=== PATIENT | female | born 1960 | race Caucasian/White ===

== ENCOUNTER 2016-08-04 05:56 | Inpatient (IN) | payer OTHER ==
--- NOTE | 2016-08-01 08:41 | PCM.ANEPRE ---
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
[~2016-08-04] VITALS: Ht 157.5 cm; Wt 57.0 kg
[2016-08-04] VITALS (14 sets, daily range): BP systolic 114–143; BP diastolic 40–91; PULSE 57–75; RESP 7–23; O2SAT 91–100
[~2016-08-04 05:56] MED LIST: ASPI-973 PO; CYCL10TA9 PO; GABA-500 PO; HYDR-3740 PO; LAMO200T2 PO; LEVO125T6 PO; Lactated Ringer's 1,000 ML IV ONE; NITR0.4T SL; PROZ20 PO
[2016-08-04] MEDS: Tranexamic Acid 100 mg/mL 10 mL Inj IV SCH ×2 (06:00→08:00)
[2016-08-04] MEDS ORDERED: Vancomycin Inj 1,000 MG in IV Premix 1 EACH IV ONE (06:00)
[2016-08-04] MEDS ORDERED: Bupivacaine Liposome 1.3% 20 mL Inj INFILTRATE ONE (06:00)
[2016-08-04] MEDS ORDERED: CeFAZolin Inj 2 GM in IV Premix 1 EACH IV ONE (06:00)
[2016-08-04] MEDS ORDERED: Lactated Ringer's 1,000 ML IV ONE ×2 (06:45→10:34)
[2016-08-04] MEDS ORDERED: 0.9% Sodium Chloride 200 ML ONE (07:00)
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
[2016-08-04] MEDS ORDERED: Bupivacaine-MPF 0.25%/EPI 30 mL Inj INJ ONE (07:38)
[2016-08-04] MEDS ORDERED: Bupivacaine-MPF 0.5% 30 mL Inj INFILTRATE ONE (07:38)
[2016-08-04] MEDS ORDERED: Gentamicin 40 mg/mL 2 mL Inj IRRIGATION ONE (07:38)
[2016-08-04] MEDS: Tranexamic Acid 100 mg/mL 10 mL Inj ONE ×2 (08:05→09:03)
[2016-08-04] MEDS ORDERED: Lactated Ringer's 500 ML IV PRN (08:44)
[2016-08-04] MEDS ORDERED: Lactated Ringer's 1,000 ML IV SCH (08:44)
[2016-08-04] MEDS ORDERED: Phenylephrine 10,000 mCg/mL Inj IVPUSH PRN (08:45)
[2016-08-04] MEDS ORDERED: fentaNYL-PF 50 mCg/mL 2 mL Inj IVPUSH PRN (08:45)
[2016-08-04] MEDS ORDERED: Atropine 0.4 mg/mL Inj IVPUSH PRN (08:45)
[2016-08-04] MEDS ORDERED: Ondansetron 2 mg/mL 2 mL Inj IVPUSH PRN (08:45)
[2016-08-04] MEDS ORDERED: EPHEDrine Sulfate 50 mg/mL Inj IVPUSH PRN (08:45)
[2016-08-04] MEDS ORDERED: MetoCLOpramide 5 mg/mL 2 mL Inj IVPUSH PRN (08:45)
[2016-08-04] MEDS ORDERED: Dexamethasone 4 mg/mL Inj IVPUSH PRN (08:45)
[2016-08-04] MEDS ORDERED: HYDROmorphone 1 mg/mL Inj IVPUSH PRN (08:45)
--- NOTE | 2016-08-04 09:37 | PCM.ANEP1 ---
Post Anesthesia Phase 1 PACU Phase 1 Assessment Vital Signs Vital Signs Date Time Temp Pulse Resp B/P Pulse Ox O2 Delivery O2 Flow Rate FiO2 08/04/16 07:02 35.6 75 14 114/81 95 Room Air pulse 66 sat 92 124/86 temp 36.8 awake, doing well Anesthetic Administered: Regional Block, SAB Level of Alertness: Awake, talking MARINELLI's with Equal Strength: No Pain: No Nausea or Vomiting: No Oxygen Delivery: Room Air Lungs: Clear to Auscultation Barron Rader MD Aug 04, 2016 09:37
--- NOTE | 2016-08-04 10:28 | OP ---
[address] [address] OPERATIVE REPORT PATIENT: RD LYONS : 1960 MR#: [id number] ADMIT: 08/04/2016 JOB ID: [id number] DATE OF SURGERY: 08/04/2016 PREOPERATIVE DIAGNOSIS(ES): Advanced medial compartment osteoarthritis. POSTOPERATIVE DIAGNOSIS(ES): Advanced medial compartment osteoarthritis. PROCEDURE: Total knee replacement, right knee. SURGEON: Carlos Eduardo Trujillo MD INSURANCE AGENCY MANAGER: Kayleigh Abdi PA-C. Machine Programmer required due to the major complexity of the operation. INDICATIONS: This is a woman who has had substantial disability associated with gnlg-vh-[id number] medial compartment. She is not interested in a unicompartmental knee replacement, and wishes to proceed with a total knee replacement. She does understand the significant magnitude of this procedure, the potential risks and complications, which include, but is not limited to, infection, thromboembolic, neurovascular events, as well as a potential for implant failure. She understands that a total knee does not create a knee that feels completely normal nor to expect 100% pain relief. DESCRIPTION OF PROCEDURE: The patient is prepped and draped in the usual sterile fashion. An anteromedial approach made and dissection carried down. Patella was subluxed laterally, cut transversely, sized to a 29 mm implant. A patellar protection plate utilized. Alignment apparatus was assembled. Sword placed in the distal femur and a 5 degree valgus distal femoral cut was made. The bone fragments were removed and the femur was sized to a 5 chamfer cutting block, fixed in appropriate position. Rotation, drill holes and chamfer cuts were made. The tibia was cut with the extramedullary tool sized to C tibial component. Appropriate rotation was set. Excellent patellar tracking was encountered and ideal flexion extension balance was achieved with full extension, and a passive drop of 130 degrees flexion with a 10 mm fully congruent polyethylene. The wounds were irrigated with a large quantity of sterile irrigant, and pressurized lavage was followed by pressurized cementation of the components. Excess cement removed during the curing process. Final construct assembled. All meniscal tissue and osteophytes were carefully removed. The tourniquet was let down. The deep Hemovac drain was left. The knee had been lavaged with dilute Betadine solution and injected with Exparel and Marcaine mix. Deep fascia closure over a drain with a #2 Quill deep, followed by 2-0 Vicryl, 3-0, and a 4-0 intracuticular stitch. The patient tolerated the procedure well. There were no complications. Taken to the recovery room in stable condition.
--- NOTE | 2016-08-04 10:43 | DRSVH ---
PROCEDURE: X-RAY RIGHT KNEE, ONE OR TWO VIEWS ([id number]) INDICATIONS: PROTHESIS ALIGHNMENT TECHNIQUE: 2 view(s) of the knee acquired. COMPARISON: None. FINDINGS: Bones: Patient is status post knee joint arthroplasty. Hardware components are in expected position s. Visualized bony structures are intact. Soft tissues: Overlying postoperative changes are noted. IMPRESSION: Expected appearance following right knee arthroplasty. Dictated by: Yamile Delvalle M.D. on 08/04/2016 at 10:41 Approved by: Yamile Delvalle M.D. on 08/04/2016 at 10:42
[2016-08-04] MEDS ORDERED: Phenylephrine/NS 100 mCg/mL 10 mL Syringe IVPUSH ONE (11:04)
[2016-08-04] MEDS ORDERED: fentaNYL-PF 50 mCg/mL 2 mL Inj ONE (11:04)
[2016-08-04] MEDS ORDERED: Propofol 10,000 mCg/mL 20 mL Inj ONE ×2 (11:04)
[2016-08-04] MEDS ORDERED: MetoCLOpramide 5 mg/mL 2 mL Inj IV PRN (11:15)
[2016-08-04] MEDS ORDERED: Magnesium Hydroxide 10 mL Oral Concentration PO PRN (11:15)
[2016-08-04] MEDS ORDERED: diphenhydrAMINE 25 mg Capsule PO PRN (11:15)
[2016-08-04] MEDS ORDERED: Alum-Mag Hydrox-Simeth 30 mL Suspension PO PRN (11:15)
[2016-08-04] MEDS ORDERED: Ondansetron 8 mg ODT Tablet PO PRN (11:15)
[2016-08-04] MEDS ORDERED: Ondansetron 2 mg/mL 2 mL Inj IV PRN (11:15)
[2016-08-04] MEDS ORDERED: Sodium Biphos-Phos 133 mL Enema RECTAL PRN (11:15)
--- NOTE | 2016-08-04 11:16 | PCM.ANEP2 ---
Post Anesthesia Evaluation ASA/CMS Post Anesthesia VS in Patient's Normal Range?: Yes Resp Stable; Airway Patent?: Yes CV Function & Hydration Stable: Yes Mental Status Recovered?: Yes Pain control Satisfactory?: Yes N/V Control Satisfactory?: Yes Barron Rader MD Aug 04, 2016 11:16
[2016-08-04] MEDS: oxyCODONE-Acetamin 5-325 mg Tablet PO PRN ×4 (11:38→20:34)
[2016-08-04] MEDS: Lactated Ringer's 1,000 ML IV SCH (11:39)
--- NOTE | 2016-08-04 12:08 | NUR ---
Pt arrival to 1028 post surgical Rt TKA Report rec'd from Anna Pt arrived from PACU at 1100. A/O x3, very talkative. Pt complaining of px 5/10 to right shoulder, requesting px meds. Kpad applied. Orientation video played for Pt. Pt numb still from nerve blocks, murrell cath in place d/t retention, draining clear yellow urine to gravity. Right knee vinicius wrap in place, CDI, hemovac drain clamped, SCD in place on non-surgical LE, cap refill <1 BLLE, Pt unable to wiggle toes, states minor sensation to left foot.
[2016-08-04] MEDS: hydrOXYzine Pamoate 25 mg Capsule PO PRN ×2 (15:34→20:33)
--- NOTE | 2016-08-04 15:34 | NUR ---
Evaluation completed. Please go to "Notes" then click on "Assessments and Notes" (bottom left corner of screen). Then select appropriate discipline tab on top of screen.
[2016-08-04] MEDS ORDERED: CeFAZolin 2 Gm/50 mL D5W Premix IV SCH (16:00)
[2016-08-04] MEDS: LORazepam 0.5 mg Tablet PO PRN ×2 (16:37→20:34)
[2016-08-04] MEDS ORDERED: Vancomycin 1 Gm/200 mL NS Premix IV ONE (19:00)
[2016-08-04] MEDS: lamoTRIgine 100 mg Tablet PO SCH (20:34)
[2016-08-04] MEDS: CeFAZolin Inj 2 GM in IV Premix 1 EACH IV SCH (22:43)
[2016-08-05 00:42] VITALS: BP 104/66; PULSE 66; RESP 20; O2SAT 98
[2016-08-05] MEDS: LORazepam 0.5 mg Tablet PO PRN ×2 (00:55→08:52)
[2016-08-05] MEDS: hydrOXYzine Pamoate 25 mg Capsule PO PRN ×3 (00:55→22:19)
[2016-08-05] MEDS: oxyCODONE-Acetamin 5-325 mg Tablet PO PRN ×3 (00:56→20:14)
[2016-08-05] MEDS: Lactated Ringer's 1,000 ML IV SCH ×2 (04:04→20:35)
[2016-08-05 05:15] VITALS: BP 94/58; PULSE 66; RESP 20; O2SAT 99
[2016-08-05] MEDS: CeFAZolin Inj 2 GM in IV Premix 1 EACH IV SCH (06:23)
--- NOTE | 2016-08-05 07:15 | NUR ---
Pain/Anxiety Pt increasingly restless and impulsive, abdomen distended and complaints of cramping pain. Pt uses bedpan and is emotional and crying r/t bowel movement being on skin and making the room smell bad. PO pain medication unsuccessful, maalox and zofran have better results at reducing discomfort. Pt has complaints of insomnia, ambien minimally effective and restoril given as follow up. 1 dose of IV meds for breakthrough pain control. SAo2 100 on 1L, maintained for REBECCA. IV patent and infusing LR at 60 ml/h. Care continues
[2016-08-05] MEDS ORDERED: LEVOTHYROXINE PO SCH ×2 (07:30)
[2016-08-05] MEDS: lamoTRIgine 100 mg Tablet PO SCH ×2 (08:07→20:15)
--- NOTE | 2016-08-05 10:28 | PCM.PNORTH ---
Subjective Date of Service: Aug 05, 2016 Visit Information: Reason for Visit Right Knee Arthritis Surgery/Surgery Date Post-Op Day # Date of Admission: Aug 04, 2016 at 11:03 Hospital Day # Subjective Found patient awake but somnolent. Attempted conversation and instructions and patient was unable to follow these. Patient deteriorated into rambling about unrelated issues with punctuated periods of somnolence. Attempted to discuss performance with physical therapy and typical recovery process while in-house and patient deteriorated into unrelated rambling. Postop General: No Complaints, No Shortness of Breath Pain Management: PO, IV Push Objective Exam Objective Orientation: Intermittently awake and poorly oriented. Unable to carry on a focused conversation. Dressing: Interoperative dressing is clean dry and intact. Wound: Wound is not observed today. Compartments: Calf and thigh are soft. Patient complains of pain posterior calf. Mobility/sensation: Toe wiggle and sensation are intact at right lower extremity distally. CASSI hose: None Alcocer: Present and working Drain: Hemovac drain present and working Gait: No gait yet as of this time with physical therapy. Vital Signs and I/O Vital Sign - Last Date Time Temp Pulse Resp B/P Pulse Ox O2 Delivery O2 Flow Rate FiO2 08/05/16 08:28 Supplement Oxygen 08/05/16 05:15 36.3 66 20 94/58 99 1.00 Intake and Output 08/04/16 08/04/16 08/05/16 Cumulative From/Thru 14:59 22:59 06:59 07/31/16 09:19 - 08/05/16 06:12 Intake Total 1450 ml 1360 ml 570 ml 3580 ml Output Total 950 ml 2000 ml 1540 ml 4490 ml Balance 500 ml -640 ml -970 ml -910 ml Intake Oral 1000 ml 570 ml 1570 ml IV Total 1450 ml 360 ml 2010 ml Output Urine Total 900 ml 2000 ml 1150 ml 4050 ml Drainage Total 390 ml 390 ml Estimated Blood Loss 50 ml 50 ml # Bowel Movements 1 1 General Appearance: Cooperative, No Acute Distress Extremities: No Compartment Syndrom Noted Postop Sensory Motor: Distal Motor Intact, Movement in Toes, Distal Sensation Intact SURGICAL WOUND : Drain Location Body Site: Knee Wound Drainage Type: Hemovac Activity: Activity per PT, Ambulate with PT (weightbearing as tolerated on the right lower extremity using frontwheel walker.) Catheters: Urethral 2 Way Alcocer Assessment & Plan Impression Patient is a 56-year-old female who is undergone elective right total knee arthroplasty on 08/04/[address] Carlos Eduardo Trujillo. Patient is a chronic narcotic user as well as using alcohol and cigarettes. Today on my first meeting with this patient she is somewhat incoherent regarding her conversation and is unable to focus. She is discussing and describing things that are not the topic of conversation. I cannot determine nor address the typical issues that would be managed at this first conversation due to patient's interaction. Patient does describe that she will discharge to a friend's home but is unclear about whether they will will be help there if needed. Problems: Plan Postop day # 1 from right total knee arthroplasty performed on 08/04/[address] Carlos Eduardo Trujillo. Weight bearing status: Weightbearing as tolerated on the right lower extremity. Mobility aid: From a walker Immobilization: None Precautions: Standard postoperative precautions including up with assist until cleared by physical therapy for independent mobility. Patient presents as somewhat incoherent with inability to focus on the topic at hand. Physical therapy: Continue formal physical therapy for mobility, gait and safety. Pain control: Continue by mouth pain medications with diligent effort to move away from IV pain medication. DVT prophylaxis: Continue ASA 81 mg EC by mouth twice a day 6 weeks postop for DVT prophylaxis. Wound care: Keep surgical wound clean dry and covered until seen in office in 2 weeks. Alcocer: Present and working. Alcocer should be discontinued today on postop day 1 after first PT session. Dressing: Interoperative dressing is clean dry and intact. Interoperative dressing will be changed to postoperative dressing tomorrow on postop day #2. Drain: Hemovac drain is present and working. Hemovac drain will be discontinued today on postop day #1 at 24 hours postop. CASSI hose: None. Bilateral thigh-high CASSI hose will be ordered today. Nursing communication: Nursing please discontinue Alcocer catheter today on postop day 1 after first PT session. Nursing please discontinue Hemovac wound drained today on postop day #1 at 24 hours postop. Nursing please move patient toward by mouth pain medications. Nursing please apply left lower extremity CASSI hose today on postop day 1 and applied right lower extremity CASSI hose tomorrow on postop day #2 after interoperative dressing has been changed. 2-week follow-up: Follow-up in 2 weeks at [facility] orthopedic clinic on prearranged appointment with mid-level provider for wound check and suture removal. 6-week follow-up: Follow-up in 6 weeks at [facility] orthopedic clinic on prearranged appointment with Dr. Carlos Eduardo Trujillo with right 2 view knee x- rays on arrival Plan: Due to patient's cognitive condition and her history of chronic narcotic use, cardiac ablation and current smoking and alcohol consumption I have requested hospitalist service to aid in the medical management of this patient. I have ordered a nicotine patch for the patient which she had previously refused. She currently admits to 4 cigarettes per day. She also currently admits to 2 beers per day. Based on my interaction I am not sure that these quantities are accurate. We will otherwise continue as usual with attempts at formal physical therapy with anticipated discharge to home on postop day 3. We may need to take advantage of home health services. Orthopedics thanks hospitalist service for their help in the medical management of this patient. Discharge instructions: Weightbearing as tolerated on the right lower extremity using front-wheeled walker. Begin outpatient physical therapy as soon as possible post discharge. Keep wound clean dry and covered until seen in office in 2 weeks. Patient may shower and wound should be kept dry and covered. Discharge plan: Anticipated discharge on postop day #3. VTE Prophylaxis: SCDs (left lower extremity SCD only.), CASSI Hose (bilateral thigh-high CASSI hose.), Other (ASA 81 mg EC by mouth twice a day 6 weeks postop for DVT prophylaxis.) Harrison Dueñas PA-C Aug 05, 2016 09:10
[2016-08-05 11:57] LABS: BASOPHILS % (AUTO) 0.2 % (0-3); EOSINOPHILS % (AUTO) 1.8 % (0-5); MONOCYTES % (AUTO) 5.9 % (4-12); Mean Corpuscular Hemoglobin 31.6 pg (27.0-35.0); Mean Corpuscular Volume 96.1 fL (81-100); NEUTROPHILS % (AUTO) 74.9 % (40-74); Platelet Count 147 bil/L (150-400)
--- NOTE | 2016-08-05 12:24 | DRSVH ---
PROCEDURE: US VEINOUS LEG DUPLEX UNILATERAL, RIGHT INDICATIONS: right posterior calf pain TECHNIQUE: Real-time imaging, as well as color and pulse Doppler interrogation, were performed of the lower extr emity deep veins from the inguinal ligament to the popliteal fossa. COMPARISON: None. FINDINGS: The deep veins are normally compressible, and free of intraluminal thrombus. Color and pu lse Doppler demonstrate normal phasic intraluminal flow. There is normal augmentation response to di stal compression maneuver. IMPRESSION: No deep venous thrombosis identified within the right lower extremity. Dictated by: Spike ASHBY Interpreted: Yana White MD on 08/05/2016 at 12:23 Transcribed by: YELITZA on 08/05/2016 at 12:24 Approved by: Yana White M.D. on 08/05/2016 at 15:21
[2016-08-05 12:47] LABS: Magnesium 2.1 mg/dL (1.6-2.6); Phosphorus 3.3 mg/dL (2.5-4.9)
[2016-08-05 12:48] VITALS: BP 99/64; PULSE 85; RESP 18; O2SAT 99
[2016-08-05 12:49] LABS: TROPONIN T < 0.010 ug/L (0.0-0.011)
[2016-08-05 13:47] LABS: APPEARANCE,URINE HAZY (CLEAR,HAZY); COLOR,URINE YELLOW (YELLOW); PH,URINE 5.5 (5.0-8.0)
[2016-08-05 13:48] LABS: OCCULT BLOOD,URINE LARGE (NEGATIVE); UROBILINOGEN,URINE NORMAL (NORMAL)
[2016-08-05 13:59] LABS: YEAST,URINE FEW (NONE SEEN)
--- NOTE | 2016-08-05 16:01 | NUR ---
Social Work-attempted assessment: Data:EMR Reviewed. Pt is a 56 y/o female who was admitted on 08/04/16 for right knee arthritis per H&P. Pt's insurance is [employer] and PCP is Marilyn Pruett MD. Pt resides at home where she remains independent with ADLs. SW attempted to see pt, but PT currently in the room. SW to follow up with assessment tomorrow.SW will continue to follow. Assessment:Pt who is independent at baseline. Plan:Pt to discharge home when medically stable via POV. SW to follow up with assessment tomorrow.SW will continue to follow. JANET Yee
--- NOTE | 2016-08-05 17:32 | PCM.CHPMED ---
Subjective Date of Service: Aug 05, 2016 Provider requesting consult: Carlos Eduardo Trujillo MD Primary Physician: Admitting Physician: Carlos Eduardo Trujillo MD Primary Care Physician: Marilyn Pruett MD Attending Physician: Carlos Eduardo Trujillo MD Chief Complaint: Chief Complaint: Medicine consulted for altered mental status/1 day History of Present Illness: Kerry is a 56-year-old lady with past medical history of hypertension,WPW status post ablation, mitral valve prolapse, hypothyroidism, anxiety disorder was admitted for elective right total knee replacement. She underwent successful right knee replacement on 08/04/16 with no complications. She was noted to be slightly confused today and medicine consulted. She had received oxycodone and Ativan this morning. Spoke with her mother at bedside, she states patient is slightly more sleepy today otherwise not much changed from baseline. Patient alert and oriented 3 At time of examination. Denies fever. Complains of pain at surgical site. Review of Systems: A comprehensive review of systems performed, pertinent positives and negatives included in history of present illness PMH Past Medical History Right knee arthritis Mitral valve prolapse WPW status post ablation Endometriosis status post ablation 2 Hypothyroidism Anxiety Surgical History Endometrial ablation wpw ablation Arthroscopy knee Laminectomy March 2012 Tonsillectomy neck surgery Home Medications Aspirin 81 mg by mouth daily Cyclobenzaprine 10 mg by mouth. Gabapentin 600 mg 3 tablets at bedtime Lamotrigine 200 mg twice daily Levothyroxine 125 g daily Prozac 20 mg by mouth daily Allergies: Coded Allergies: codeine phosphate (Verified Adverse Reaction, Severe, NAUSEA, 07/31/16) crab (Verified Adverse Reaction, Severe, STOMACH ACHE, 07/31/16) morphine (Verified Adverse Reaction, Severe, NAUSEA, ANXIETY, PALPITATIONS , 07/31/16) Family History Family History Adopted Social History Hx Alcohol Use: Yes (4 drinks/week)Hx Substance Use: NoHx Tobacco Use: Yes (1 /2 pack day) Exam Vital Signs Vital Sign - Last Date Time Temp Pulse Resp B/P Pulse Ox O2 Delivery O2 Flow Rate FiO2 08/05/16 14:19 Room Air 08/05/16 12:48 85 18 99/64 99 1.00 08/05/16 05:15 36.3 Intake and Output 08/04/16 08/04/16 08/05/16 Cumulative From/Thru 15:00 23:00 07:00 2/9/17 09:19 - 08/05/16 06:12 Intake Total 1450 ml 1360 ml 570 ml 3580 ml Output Total 950 ml 2000 ml 1540 ml 4490 ml Balance 500 ml -640 ml -970 ml -910 ml Intake Oral 1000 ml 570 ml 1570 ml IV Total 1450 ml 360 ml 2010 ml Output Urine Total 900 ml 2000 ml 1150 ml 4050 ml Drainage Total 390 ml 390 ml Estimated Blood Loss 50 ml 50 ml # Bowel Movements 1 1 General: Alert, Oriented X3, Cooperative, No Acute Distress Head: Normal Mouth: Mucous Membr Moist/[place] Neck: Supple Chest & Lungs: Clear to auscultation & percussion Cardiovascular: Regular Rate/Rhythm, Normal S1, Normal S2 Abdomen: Benign Genitourinary: Other (Alcocer in place) Musculoskeletal: Other (right knee surgical site cleanly dressed, drain in place ) Neurological: Grossly Neurologically Intact, Normal Speech, Strength Normal 4/ 4 ext, Sensation Intact Lab and Diagnostics Result Diagram: 08/05/16 1149 08/05/16 1149 Additional Diagnostics: PREOPERATIVE DIAGNOSIS(ES): Advanced medial compartment osteoarthritis. POSTOPERATIVE DIAGNOSIS(ES): Advanced medial compartment osteoarthritis. PROCEDURE: Total knee replacement, right knee. SURGEON: Carlos Eduardo Trujillo MD UNDER GROUND MINER: Kayleigh Abdi PA-C. Pipelines Superintendent required due to the major complexity of the operation. INDICATIONS: This is a woman who has had substantial disability associated with [id number] medial compartment. She is not interested in a unicompartmental knee replacement, and wishes to proceed with a total knee replacement. She does understand the significant magnitude of this procedure, the potential risks and complications, which include, but is not limited to, infection, thromboembolic, neurovascular events, as well as a potential for implant failure. She understands that a total knee does not create a knee that feels completely normal nor to expect 100% pain relief. DESCRIPTION OF PROCEDURE: The patient is prepped and draped in the usual sterile fashion. An anteromedial approach made and dissection carried down. Patella was subluxed laterally, cut transversely, sized to a 29 mm implant. A patellar protection plate utilized. Alignment apparatus was assembled. Sword placed in the distal femur and a 5 degree valgus distal femoral cut was made. The bone fragments were removed and the femur was sized to a 5 chamfer cutting block, fixed in appropriate position. Rotation, drill holes and chamfer cuts were made. The tibia was cut with the extramedullary tool sized to C tibial component. Appropriate rotation was set. Excellent patellar tracking was encountered and ideal flexion extension balance was achieved with full extension, and a passive drop of 130 degrees flexion with a 10 mm fully congruent polyethylene. The wounds were irrigated with a large quantity of sterile irrigant, and pressurized lavage was followed by pressurized cementation of the components. Excess cement removed during the curing process. Final construct assembled. All meniscal tissue and osteophytes were carefully removed. The tourniquet was let down. The deep Hemovac drain was left. The knee had been lavaged with dilute Betadine solution and injected with Exparel and Marcaine mix. Deep fascia closure over a drain with a #2 Quill deep, followed by 2-0 Vicryl, 3-0, and a 4-0 intracuticular stitch. The patient tolerated the procedure well. There were no complications. Taken to the recovery room in stable condition. Carlos Eduardo Trujillo MD 08/04/16 0916 <Electronically signed by Carlos Eduardo Trujillo MD> 08/05/16 0848 Report status: Signed Transcribed by: PRECYSE 08/04/16 1029 Assessment & Plan Assessment Kerry is a 56-year-old lady with past medical history of hypertension,WPW status post ablation, mitral valve prolapse, hypothyroidism, anxiety disorder was admitted for elective right total knee replacement # Altered mental state,acute,not poa -due to pain meds vs UTI vs others -Remove Alcocer -UA with pyuria, urine culture pending. will start ceftriaxone -TSH is elevated at 15, free T4 0.83, borderline low. will increase Synthroid to 150 mics daily -Will use pain meds with caution, lowered gabapentin dose - will consider imaging if no improvement # Status post right knee replacement on 08/04/16 -Pain control -Will defer DVT prophylaxis per orthopedics #Hypothyroidism -as above # History of WPW status post ablation, chronic, stable -No palpitation, regular rhythm on exam Thank you for the consult, will follow along with you Problems: VTE Prophylaxis: SCDs (left lower extremity SCD only.), CASSI Hose (bilateral thigh-high CASSI hose.), Other (ASA 81 mg EC by mouth twice a day 6 weeks postop for DVT prophylaxis.) VTE Mechanical Devices: Intermittant Pneumatic CD Jacob Ruelas MD Aug 05, 2016 17:32
[2016-08-05] MEDS ORDERED: 0.9% Sodium Chloride 250 ML ONE (18:12)
[2016-08-05] MEDS: cefTRIAXone Inj 1,000 MG in Dextrose 5% Minibag Plus 50 ML IV SCH (18:26)
--- NOTE | 2016-08-05 18:57 | NUR ---
Shift update: Upon arrival this a.m. Pt noted to be very sedated, unable to follow commands or answer questions appropriately. Very agitated when woken almost as if in a panic. Spoke with surgeon and DON Dueñas, reviewed EMAR and noted Pt had rec'd multiple px meds and anxiety meds during the night. Discussed with DON Dueñas and recommendations made to stay with oral px meds and small dose of anti anxiety meds. Pt is a smoker and has previously declined nicotine patch. Re-approached Pt and asked if she would like to reconsider. She accepted. PA ordered. PA spoke with hospitalist and medication changes have been made. Pt c/o px and after receiving px meds and vistaril for spasms,continued to cry in px, when changing subject and redirecting Pt clear, settled down, not anxious and able to focus on eating dinner. Mid shift Pt pulled out 1 of her IV's in FA when she was in a confused state, but visiting with her mom, unaware how she did it. Pt was up with PT this afternoon and was able to focus. Up to BSC x2 using FWW. Reminders given about hand/foot placement during transfers. 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
[2016-08-05 18:59] VITALS: BP 111/72; PULSE 81; RESP 20; O2SAT 98
[2016-08-05] MEDS: LEVOTHYROXINE PO SCH ×2 (21:23)
[2016-08-06] MEDS: oxyCODONE-Acetamin 5-325 mg Tablet PO PRN ×5 (02:24→21:45)
[2016-08-06] MEDS: hydrOXYzine Pamoate 25 mg Capsule PO PRN ×5 (02:24→21:45)
--- NOTE | 2016-08-06 02:49 | NUR ---
Pain/activity Pt reporting pain up to 9/10 at beginning of shift and was given 2 tab of Percocet. Breakthrough pain medication needed after 2 hrs and pt was given 2 tabs of Oxycodone and 1 tab of Vistaril. Orthos intact, BELL wrap dressing CDI to right knee. SCD and Thigh high peter hose placed on non surgical leg. Pt is alert/oriented x3 while awake. Alcocer was taken out at the end of day shift and pt was voiding without issues by 2100, up to BSC with OPA and FWW. Rosana alarm in place. Continue close monitoring.
[2016-08-06 05:48] VITALS: BP 107/66; PULSE 69; RESP 18; O2SAT 98
--- NOTE | 2016-08-06 09:23 | PCM.PNORTH ---
Subjective Date of Service: Aug 06, 2016 Visit Information: Reason for Visit Right Knee Arthritis Surgery/Surgery Date Post-Op Day # Date of Admission: Aug 04, 2016 at 11:03 Hospital Day # Subjective Phone patient awake and alert and sitting up in bed crying uncontrollably secondary to pain. In discussion with patient and nurse it became apparent that the patient's pain medication had been someway been delayed for approximately 6 hours which has then put patient behind the pain curve and she is uncomfortable. We have explained to the patient that she is premedicated and will feel better soon. Postop General: No Shortness of Breath, No Chest Pain Pain Management: PO Objective Exam Objective Orientation: Alert and follows commands. Dressing: Interoperative dressing is clean dry and intact. Interoperative dressing is changed postop dressing today consisting of ABD with fishnet and Silverlon. Wound: Surgical wound is in good condition. Compartments: Calf and thigh are soft and nontender. Mobility/sensation: Toprol and sensation are intact at right lower extremity distally. CASSI hose: In place at left lower extremity. I spoke with nursing regarding feeding the right lower extremity thigh-high CASSI hose today when she has improved pain control. Alcocer: Absent Drain: In place and working. Drain was removed today at the time of dressing change. Gait: Gait 25 feet yesterday on postoperative day #1, 08/05/2016. Vital Signs and I/O Vital Sign - Last Date Time Temp Pulse Resp B/P Pulse Ox O2 Delivery O2 Flow Rate FiO2 08/06/16 05:48 36.4 69 18 107/66 98 Nasal Cannula 08/05/16 12:48 1.00 Intake and Output 08/05/16 08/05/16 08/06/16 Cumulative From/Thru 15:00 23:00 07:00 07/31/16 09:19 - 08/06/16 06:31 Intake Total 892 ml 1170 ml 768 ml 6410 ml Output Total 990 ml 945 ml 6425 ml Balance 892 ml 180 ml -177 ml -15 ml Intake Oral 500 ml 600 ml 2670 ml IV Total 892 ml 670 ml 168 ml 3740 ml Output Urine Total 900 ml 900 ml 5850 ml Drainage Total 90 ml 45 ml 525 ml Estimated Blood Loss 50 ml # Voids 2 2 # Bowel Movements 1 Lab & Micro Results Laboratory Tests Test 08/05/16 11:49 08/05/16 13:15 White Blood Count 4.9th/mm3 (3.8-10.1) Red Blood Count 3.04mil/mm3 (3.90-5.20) Hemoglobin 9.6g/dL (12.0-15.6) Hematocrit 29.2% (35.0-46.0) Mean Corpuscular Volume 96.1fL (81-100) Mean Corpuscular Hemoglobin 31.6pg (27.0-35.0) Mean Corpuscular Hemoglobin Concent 32.9% (32.0-37.0) Red Cell Distribution Width 12.3% (12.3-15.4) Platelet Count 147bil/L (150-400) Neutrophils (%) (Auto) 74.9% (40-74) Lymphocytes (%) (Auto) 17.0% (14-46) Monocytes (%) (Auto) 5.9% (4-12) Eosinophils (%) (Auto) 1.8% (0-5) Basophils (%) (Auto) 0.2% (0-3) Sodium Level 139mEq/L (134-144) Potassium Level 4.4mEq/L (3.5-5.2) Chloride Level 102mEq/L (97-108) Carbon Dioxide Level 26mmol/L (18-29) Blood Urea Nitrogen 14mg/dL (6-24) Creatinine 0.87mg/dL (0.57-1.00) Estimat Glomerular Filtration Rate 97mL/min (>59) Glucose Level 196mg/dL (60-99) Calcium Level 7.9mg/dL (8.5-10.1) Phosphorus Level 3.3mg/dL (2.5-4.9) Magnesium Level 2.1mg/dL (1.6-2.6) Total Bilirubin 0.3mg/dL (0.0-1.2) Aspartate Amino Transf (AST/SGOT) 27U/L (0-50) Alanine Aminotransferase (ALT/SGPT) 17U/L (0-32) Alkaline Phosphatase 75U/L (25-150) Ammonia 34ug/dL (18-53) Troponin T < 0.010ug/L (0.0-0.011) Total Protein 5.0g/dL (6.4-8.4) Albumin 3.5g/dL (3.4-5.0) Procalcitonin 0.25ng/mL (0.00-0.08) Thyroid Stimulating Hormone (TSH) 15.210uIU/mL (0.450-4.500) Free Thyroxine 0.83ng/dL (0.82-1.77) Urine Color Yellow (YELLOW) Urine Appearance Hazy (CLEAR,HAZY) Urine pH 5.5 (5.0-8.0) Urine Specific [place] 1.025 (1.003-1.035) Urine Protein Negativemg/dL (NEG,TRACE) Urine Glucose (UA) Negativemg/dL (NEGATIVE) Urine Ketones Negativemg/dL (NEGATIVE) Urine Occult Blood Large (NEGATIVE) Urine Nitrite Negative (NEGATIVE) Urine Bilirubin Negative (NEGATIVE) Urine Urobilinogen Normalmg/dL (NORMAL) Urine Leukocyte Esterase Small (NEGATIVE) Urine RBC 11-50/hpf (0-2) Urine WBC 6-10/hpf (0-5) Urine Epithelial Cells Occasional/hpf (NONE-MOD) Urine Crystals None seen (NONE SEEN) Urine Bacteria None/hpf (NONE-FEW) Urine Hyaline Casts None/lpf (NONE) Urine Granular Casts None seen (NONE SEEN) Urine Waxy Casts None seen (NONE SEEN) Urine Red Blood Cell Casts None seen (NONE SEEN) Urine White Blood Cell Casts None seen (NONE SEEN) Urine Mucus None seen (None Seen) Urine Trichomonas None seen (NONE SEEN) Urine Yeast Few (NONE SEEN) Urinalysis Comment None Urine Culture Reflexed Indicated Microbiology 08/05/16 Urine Culture - Preliminary, Resulted No growth to date Result Diagram: 08/05/16 1149 08/05/16 1149 General Appearance: Alert, Oriented X3, Cooperative, No Acute Distress Extremities: No Compartment Syndrom Noted, Thigh & Calf Soft/Nontender Postop Sensory Motor: Distal Motor Intact, Movement in Toes, Distal Sensation Intact SURGICAL WOUND : Drain Location Body Site: Knee Wound Drainage Type: Hemovac Activity: Activity per PT, Ambulate with PT (weightbearing as tolerated on the right lower extremity using frontwheel walker.) Catheters: Urethral 2 Way Alcocer Assessment & Plan Impression Patient is a 56-year-old female who is 2 days status post right total knee arthroplasty performed on 08/04/2016. Patient has participated with formal physical therapy on postop day 1 and achieved 25 feet of gait. Patient is extremely anxious and is on chronic and anxiety medication as well as chronic narcotic pain medication for a host of other issues. I believe these stork use of pain medications and patient's obvious emotional issues are conspiring to make her pain control much more difficult. She is responsive to direction and requires additional time and care to accomplish required tasks. Problems: Plan Postop day # 2 from right total knee arthroplasty performed on 08/04/[address] Carlos Eduardo Trujillo. Weight bearing status: Weightbearing as tolerated on the right lower extremity. Mobility aid: Front wheeled walker Immobilization: None Precautions: Standard postoperative precautions including up with assist until cleared by physical therapy for independent mobility. Patient presents as somewhat incoherent with inability to focus on the topic at hand. Physical therapy: Continue formal physical therapy for mobility, gait and safety. Patient should have outpatient physical therapy arranged to begin as soon as possible after discharge. Pain control: Continue by mouth pain medications in the form of Percocet, Roxicodone and Vistaril. Please avoid IV pain medications. DVT prophylaxis: Continue ASA 81 mg EC by mouth twice a day 6 weeks postop for DVT prophylaxis. Wound care: Keep surgical wound clean dry and covered until seen in office in 2 weeks. Alcocer: Absent Dressing: Interoperative dressing is clean dry and intact. Interoperative dressing is changed to postop type dressing with ABDs, fishnet and Silverlon. Drain: Hemovac drain is present and working. Hemovac drain was removed this morning during dressing change. CASSI hose: Left lower extremity CASSI hose in place. Nursing will fit right lower extremity CASSI hose today now the dressing has been changed and we will do this after patient's pain is more controlled. Nursing communication: Nursing may place right lower extremity thigh high CASSI hose today when pain control is improved. 2-week follow-up: Follow-up in 2 weeks at [facility] on prearranged appointment with mid-level provider for wound check and suture removal. 6-week follow-up: Follow-up in 6 weeks at [facility] on prearranged appointment with Dr. Carlos Eduardo Trujillo with right 2 view knee x- rays on arrival Plan: Due to patient's cognitive condition and her history of chronic narcotic use, cardiac ablation and current smoking and alcohol consumption and anxiety issues, I have requested hospitalist service to aid in the medical management of this patient. I have ordered a nicotine patch for the patient which she had previously refused. She currently admits to 4 cigarettes per day. She also currently admits to 2 beers per day. Based on my interaction I am not sure that these quantities are accurate. Patient will continue with formal physical therapy and ideally discharge on postop day #3 tomorrow, 08/07/2016. Discharge disposition is unclear. Orthopedics thanks hospitalist service for their help in the medical management of this patient. Discharge instructions: Weightbearing as tolerated on the right lower extremity using front-wheeled walker. Begin outpatient physical therapy as soon as possible post discharge. Keep wound clean dry and covered until seen in office in 2 weeks. Patient may shower on or after postoperative day #4 if wound is clean and dry.. Discharge plan: Anticipated discharge to tomorrow on postop day #3, 2016. Discharge disposition is unclear.. VTE Prophylaxis: SCDs (left lower extremity SCD only.), CASSI Hose (bilateral thigh-high CASSI hose.), Other (ASA 81 mg EC by mouth twice a day 6 weeks postop for DVT prophylaxis.) Harrison Dueñas PA-C Aug 06, 2016 09:23
[2016-08-06] MEDS: lamoTRIgine 100 mg Tablet PO SCH ×2 (09:27→21:45)
[2016-08-06] MEDS: LEVOTHYROXINE PO SCH ×2 (09:27)
[2016-08-06 09:30] VITALS: BP 153/91; PULSE 79; RESP 22; O2SAT 100
[2016-08-06] MEDS: cefTRIAXone Inj 1,000 MG in Dextrose 5% Minibag Plus 50 ML IV SCH (09:34)
--- NOTE | 2016-08-06 13:10 | NUR ---
Social Work- Initial Assessment Data: See Initial Assessment. Pt is a 56 year old female admitted 08/04/16 for right knee arthritis per H&P. Pts insurance is [employer] and PCP is Marilyn Pruett MD. RENEA reviewed. LUDWIG met with pt at bedside to discuss discharge planning. SW role explained. Pt is alert and oriented x3, though in extreme pain. Pt resides in [place] with her daughter where she remains independent with ADLs. Pt typically does not use any DME, though she does have a fww for use post-surgery. Pt does drive. Pt has no HH or SNF history. PT assessed pt and recommended home with outpt PT. Pts daughter to provide transport home at discharge. SW provided phone number and plan on [employer]. No anticipated discharge needs. SW continue to follow. Assessment: Pt who is independent at baseline. Plan: Anticipate pt to discharge home with daughter to transport via POV. Pt to receive outpt services for PT. No anticipated discharge needs. SW continue to follow. Arelis Workman PATENT LAW SPECIALIST Addendum: 08/06/16 at 1310 by STEVE WORKMAN SS Amended: Links added.
[2016-08-06] MEDS: Lactated Ringer's 1,000 ML IV SCH (13:15)
--- NOTE | 2016-08-06 14:20 | NUR ---
Pain Management P: Patient states pain is 10/10 in right knee with minimal relief from medications. Patient anxious, tearful, crying in pain, guarding right knee, stating no relief from medication, intermittent confusion about time and place. I:Patient given PO pain medications per PRN orders. Patient was encouraged to take deep breaths, reposition, and ice. E: After reassessing patient stated pain was at a 6 in her right knee. Patient on continuous pulse ox Patient was resting with eyes shut, 96 on room air, Respiratory rate 16, HR 88, patient requesting additional pain medications.
--- NOTE | 2016-08-06 15:50 | PCM.PNMED ---
Subjective Date of Service Aug 06, 2016 Subjective Mentation much improved today. Urine culture no growth. Stopped antibiotics Exam Vital Signs Vital Sign - Last Date Time Temp Pulse Resp B/P Pulse Ox O2 Delivery O2 Flow Rate FiO2 08/06/16 09:30 Supplement Oxygen 08/06/16 09:30 36.6 79 22 153/91 100 1.00 Intake and Output 08/05/16 08/05/16 08/06/16 Cumulative From/Thru 15:00 23:00 07:00 07/31/16 09:19 - 08/06/16 06:31 Intake Total 892 ml 1170 ml 768 ml 6410 ml Output Total 990 ml 945 ml 6425 ml Balance 892 ml 180 ml -177 ml -15 ml Intake Oral 500 ml 600 ml 2670 ml IV Total 892 ml 670 ml 168 ml 3740 ml Output Urine Total 900 ml 900 ml 5850 ml Drainage Total 90 ml 45 ml 525 ml Estimated Blood Loss 50 ml # Voids 2 2 # Bowel Movements 1 Exam General: Alert, Oriented X3, Cooperative, No Acute Distress Head: Normal Mouth: Mucous Membr Moist/[place] Neck: Supple Chest & Lungs: Clear to auscultation & percussion Cardiovascular: Regular Rate/Rhythm, Normal S1, Normal S2 Abdomen: Benign Genitourinary: Other (Alcocer in place) Musculoskeletal: Other (right knee surgical site cleanly dressed, drain in place ) Neurological: Grossly Neurologically Intact, Normal Speech, Strength Normal 4/ 4 ext, Sensation Intact IVs and Medications Medications Reviewed: Medications were reviewed in detail Lab and Diagnostics Result Diagram: 08/05/16 1149 08/05/16 1149 Assessment & Plan Kerry is a 56-year-old lady with past medical history of hypertension,WPW status post ablation, mitral valve prolapse, hypothyroidism, anxiety disorder was admitted for elective right total knee replacement # Altered mental state,acute,not poa. Resolved -due to pain meds -Remove Alcocer -UA with pyuria, urine culture no growth. Discontinued ceftriaxone -TSH is elevated at 15, free T4 0.83, borderline low. increased Synthroid to 150 mics daily. Needs to check thyroid function test in 6-8 weeks -Will use pain meds with caution, lowered gabapentin dose # Status post right knee replacement on 08/04/16 -Pain control -Will defer DVT prophylaxis per orthopedics #Hypothyroidism -as above # History of WPW status post ablation, chronic, stable -No palpitation, regular rhythm on exam Thank you for the consult, will follow along with you VTE Prophylaxis: SCDs (left lower extremity SCD only.), CASSI Hose (bilateral thigh-high CASSI hose.), Other (ASA 81 mg EC by mouth twice a day 6 weeks postop for DVT prophylaxis.) VTE Mechanical Devices: Anti-Embolic stockings Jacob Ruelas MD Aug 06, 2016 15:50
--- NOTE | 2016-08-06 18:14 | NUR ---
Right knee pain patient is alert, oriented and able to make needs known. post op day 2 to right knee. Increased pain 9/10 this shift. PRN pain medications given as ordered to ease pain. Doctor Preston at bed side this morning. Refer to student nurse notes for pain management. patient has been very tearful, uncomfortable, and anxious r/t increased pain to right knee. Non pharmacological interventions ICE to right knee and watching TV/distraction has been offered. Continuous pulse oximetery for pulse and oxygenation. neuros WNL, normal strength bilateral upper and lower extremities. patient having ice cream. stable mood. Verbalize the use of call light and with in reach for safety. continue to monitor for pain to right knee, vital signs ,and safety.
[2016-08-06 21:00] VITALS: BP 126/87; PULSE 75; RESP 20; O2SAT 94
[2016-08-07] MEDS: hydrOXYzine Pamoate 25 mg Capsule PO PRN ×2 (02:57→06:14)
[2016-08-07] MEDS: LORazepam 0.5 mg Tablet PO PRN ×4 (02:58→21:33)
[2016-08-07] MEDS: HYDROcodone-APAP 5-325 mg Tablet PO PRN ×2 (02:58→06:15)
--- NOTE | 2016-08-07 05:19 | NUR ---
Pain/Anxiety Pt remains tearful and anxious r/t R knee pain this shift. No complaints of R shoulder pain. Maintaining routine for PO medication; Pt calls for pain meds within minutes of previous dose- educated on timing and effective dosing as well as maximum dosing per day. Flexeril and vistaril given in addition to PRN narcotics. 1x dose ativan. Pt transfers herself to commode without assist, unwitnessed, and states she 'tweaked' her knee. Transfer back to bed 1x assit and with walker. R Knee dressing RADHA, peter cowan intact bilaterally. Frequent requests for ice cream/sherbert. Pt continent and voids large amounts. IV patent and saline locked. Care continues
[2016-08-07] MEDS: Lactated Ringer's 1,000 ML IV SCH ×2 (05:50→22:34)
[2016-08-07] MEDS: LEVOTHYROXINE PO SCH ×2 (06:15)
[2016-08-07 07:31] VITALS: BP 152/92; PULSE 74; RESP 16; O2SAT 96
--- NOTE | 2016-08-07 08:51 | PCM.PNORTH ---
Subjective Date of Service: Aug 07, 2016 Visit Information: Reason for Visit Right Knee Arthritis Surgery/Surgery Date Post-Op Day # Date of Admission: Aug 04, 2016 at 11:03 Hospital Day # Subjective Patient is doing best with Percocet for pain and vistaril. She walked in the hallway this morning 70'. She needs to do 10 steps to get into her house. Today she was able to do a couple of steps. Physical therapy recommended inpatient stay one more night to work more with her rehabilitation and plan for discharge for tomorrow. Postop General: No Shortness of Breath, No Chest Pain Pain Management: PO Objective Exam Objective Patient is seen sitting up in bed Vital Signs and I/O Vital Sign - Last Date Time Temp Pulse Resp B/P Pulse Ox O2 Delivery O2 Flow Rate FiO2 08/07/16 07:31 36.8 74 16 152/92 96 Room Air 08/06/16 09:30 1.00 Intake and Output 08/06/16 08/06/16 08/07/16 Cumulative From/Thru 15:00 23:00 07:00 07/31/16 09:19 - 08/07/16 01:46 Intake Total 141 ml 6551 ml Output Total 6425 ml Balance 141 ml 126 ml Intake Oral 2670 ml IV Total 141 ml 3881 ml Output Urine Total 5850 ml Drainage Total 525 ml Estimated Blood Loss 50 ml # Voids 2 # Bowel Movements 1 Lab & Micro Results Microbiology 08/05/16 Urine Culture - Final, Complete No growth (<1,000 organisms/mL) Result Diagram: 08/05/16 1149 08/05/16 1149 General Appearance: Alert, Oriented X3, Cooperative, No Acute Distress Extremities: Distal Pulses Palpable, No Compartment Syndrom Noted (calf is soft and nontender), Thigh & Calf Soft/Nontender Postop Sensory Motor: Distal Motor Intact, NVI Distally SURGICAL WOUND : Wound Location/Description Right knee: Steri-Strips are intact. There is minimal drainage. The wound is covered with Silverlon pad, EBD and fishnet. Patient's CASSI hose are rolled up around her calf. Drain Location Body Site: Knee Activity: Activity per PT, Ambulate with PT (weightbearing as tolerated on the right lower extremity using frontwheel walker.) Catheters: None Assessment & Plan Impression Status post right TKA POD #3 Problems: Plan Weightbearing: Weightbearing as tolerated with walker DVT prophylaxis: aspirin 81 mg twice a day 6 weeks Physical therapy for transfers, progressive ambulation, therapeutic exercise Wound care: Patient is advised to wear the CASSI hose all the way up on the leg or completely off. The stockings wadded up at the calf can cause a blood clot is set up prevent one. The CASSI hose do not work very well over the fishnet so discontinue the fishnet when CASSI hose are pulled up on the leg. Patient will need to do 10 steps to get into her home. She is not yet able to compress that today. Physical therapy recommendation is for patient to have 1 more day of therapy here before discharge. For patient safety, recommend patient plan for discharge home tomorrow. Start outpatient physical therapy next week - it is already scheduled Follow-up plan: In 2 weeks at [facility] with DON for wound check and at [address] Trujillo with x-rays Pain Management: [place], Percocet, oxycodone, Vistaril, toradol VTE Prophylaxis: SCDs, CASSI Hose (bilateral thigh-high CASSI hose.), Other (ASA 81 mg BID) Resuscitation Status: CPR: Attempt Resuscitation [place] Jacob PA-C Aug 07, 2016 08:51
[2016-08-07] MEDS ORDERED: Ketorolac 15 mg/mL Inj IVPUSH ONE (08:55)
[2016-08-07] MEDS: lamoTRIgine 100 mg Tablet PO SCH ×2 (09:08→20:31)
[2016-08-07 09:55] LABS: BASOPHILS % (AUTO) 0.2 % (0-3); EOSINOPHILS % (AUTO) 1.9 % (0-5); MONOCYTES % (AUTO) 5.8 % (4-12); Mean Corpuscular Hemoglobin 31.1 pg (27.0-35.0); Mean Corpuscular Volume 96.3 fL (81-100); Platelet Count 166 bil/L (150-400)
[2016-08-07 10:30] VITALS: BP 156/93; PULSE 77; RESP 16; O2SAT 96
[2016-08-07] MEDS: oxyCODONE-Acetamin 5-325 mg Tablet PO PRN ×4 (13:08→21:33)
--- NOTE | 2016-08-07 13:54 | NUR ---
Pain/Anxiety treatment P:Patient expressing pain level at a 10/10 at beginning of shift. I:Patient given Percocet (2 tabs) and PO Ativan 1mg per PRN schedule E:Patient states pain is a 3/10 on reassessment, patient mobility improved throughout the day, anxiety level decreased
--- NOTE | 2016-08-07 14:52 | NUR ---
Social Work Readiness for Discharge: SW met with patient at bedside to discuss discharge plan. Patient states plan as home with family and discharge to mothers home to provide additional care and assistance. Patient procedure elective and doesn't meet SNF placement consideration. SW spoke to therapy who to assess patient again tomorrow to determine safety mobility to transfer home. SW to follow. PLAN: Home with mother with continued PT eval to ensure home safety at discharge Bry GONZALES
--- NOTE | 2016-08-07 14:55 | PCM.PNMED ---
Subjective Date of Service Aug 07, 2016 Subjective Mentation improved. Pain fairly controlled. Exam Vital Signs Vital Sign - Last Date Time Temp Pulse Resp B/P Pulse Ox O2 Delivery O2 Flow Rate FiO2 08/07/16 13:53 Room Air 08/07/16 10:30 36.7 77 16 156/93 96 08/06/16 09:30 1.00 Intake and Output 08/06/16 08/06/16 08/07/16 Cumulative From/Thru 15:00 23:00 07:00 07/31/16 09:19 - 08/07/16 01:46 Intake Total 141 ml 6551 ml Output Total 6425 ml Balance 141 ml 126 ml Intake Oral 2670 ml IV Total 141 ml 3881 ml Output Urine Total 5850 ml Drainage Total 525 ml Estimated Blood Loss 50 ml # Voids 2 # Bowel Movements 1 Exam General: Alert, Oriented X3, Cooperative, No Acute Distress Head: Normal Mouth: Mucous Membr Moist/[place] Neck: Supple Chest & Lungs: Clear to auscultation & percussion Cardiovascular: Regular Rate/Rhythm, Normal S1, Normal S2 Abdomen: Benign Alcocer removed Musculoskeletal: Other (right knee surgical site cleanly dressed, drain in place ) Neurological: Grossly Neurologically Intact, Normal Speech, Strength Normal 4/ 4 ext, Sensation Intact IVs and Medications Medications Reviewed: Medications were reviewed in detail Lab and Diagnostics Result Diagram: 08/07/1691408/07/16914 Assessment & Plan Kerry is a 56-year-old lady with past medical history of hypertension,WPW status post ablation, mitral valve prolapse, hypothyroidism, anxiety disorder was admitted for elective right total knee replacement # Altered mental state,acute,not poa. Resolved -due to pain meds -Removed Alcocer -UA with pyuria, urine culture no growth. Discontinued ceftriaxone -TSH is elevated at 15, free T4 0.83, borderline low. increased Synthroid from 125 to 150 mcg daily. Needs to check thyroid function test in 6-8 weeks -Will use pain meds with caution, lowered home gabapentin dose # Status post right knee replacement on 08/04/16 -Pain control with percocet,gave a dose of Toradol before PT -DVT prophylaxis lovenox #Hypothyroidism -as above # History of WPW status post ablation, chronic, stable -No palpitation, regular rhythm on exam may discharge home when cleared by ortho with increased synthroid dose at 150mcg a day,needs to check TFT in 6-8weeks Thank you for the consult, will follow along with you VTE Prophylaxis: SCDs (left lower extremity SCD only.), CASSI Hose (bilateral thigh-high CASSI hose.), Other (ASA 81 mg BID) VTE Mechanical Devices: Intermittant Pneumatic CD, Anti-Embolic stockings Resuscitation Status: CPR: Attempt Resuscitation Jacob Ruelas MD Aug 07, 2016 14:55
--- NOTE | 2016-08-07 18:37 | NUR ---
Pain/Anxiety Pt had increased pain at beginning of shift 01/29 and frequently used call light requesting medications even though it had been less than an hour since they were given. Pt very fearful and anxious about getting up. Had a long discussion with pt, in which she became tearful, over needing better pain control and that she needed to get up and moving, which would probably help with pain. Pt stated "no one's told me I need to get up." Pt is agreeable to switching medications, working on increasing activity and taking medications for anxiety. Pt states normally take oxycodone at home. Pt was able to work with PT twice and ambulate to as well. Pain well controlled over shift and pt's mood improved. Pt can be impulsive and try to get OOB without calling. [place] alarm in place and discussed with pt using call light.
[2016-08-07 21:01] VITALS: BP 146/84; PULSE 75; RESP 16; O2SAT 94
[2016-08-08] MEDS: hydrOXYzine Pamoate 25 mg Capsule PO PRN ×5 (01:14→20:26)
[2016-08-08] MEDS: oxyCODONE-Acetamin 5-325 mg Tablet PO PRN ×6 (01:14→19:12)
--- NOTE | 2016-08-08 04:20 | NUR ---
Activity/Pain Patient noted to be trying to get OOB independently at beginning of shift. Noted to not be aware of operative knee and position it is in. [place] alarm in place for safety. Education provided on safest way for patient to get in/out of bed using operative knee. Transferring noted to improve as shift continues to go on. Able to get up and use FWW with SBA. Receiving Percocet two tabs PO for pain management with effective results. Currently resting with eyes closed.
[2016-08-08 05:30] VITALS: BP 127/78; PULSE 77; RESP 16; O2SAT 96
[2016-08-08] MEDS: lamoTRIgine 100 mg Tablet PO SCH ×2 (09:06→20:26)
--- NOTE | 2016-08-08 12:34 | PCM.PNORTH ---
Subjective Date of Service: Aug 08, 2016 Visit Information: Reason for Visit Right Knee Arthritis Surgery/Surgery Date Post-Op Day # Date of Admission: Aug 04, 2016 at 11:03 Hospital Day # Subjective Foundation awake and alert this morning. No complaints of pain at this time. Discussed discharge today after sterile training and patient is aware of this. I have also advised patient this morning regarding not rolling down her CASSI hose which creates a tourniquet effect. She has been warned about this by nursing staff as well as another PA. She continues to release down and we have tried to help her understand this could cause a blood clot which could ultimately be fatal. Postop General: No Complaints, No Shortness of Breath, No Chest Pain Pain Management: PO Objective Exam Objective Orientation: Alert and oriented 3 Dressing: Postoperative dressing intact and lightly soiled Wound: Wound is examined and is in good condition with no drainage, no focal swelling or redness. Compartments: Calf and thigh are soft and nontender Mobility/sensation: Toe wiggle and sensation are intact at right lower extremity distally CASSI hose: Bilateral CASSI hose in place. Alcocer: Absent Drain: Absent Gait: Gait 75 200 feet on 08/07/2016. Recommendation is for discharge to home after stair training today. Vital Signs and I/O Vital Sign - Last Date Time Temp Pulse Resp B/P Pulse Ox O2 Delivery O2 Flow Rate FiO2 08/08/16 05:30 36.6 77 16 127/78 96 Room Air 08/06/16 09:30 1.00 Intake and Output 08/07/16 08/07/16 08/08/16 Cumulative From/Thru 15:00 23:00 07:00 07/31/16 09:19 - 08/08/16 06:24 Intake Total 400 ml 520 ml 640 ml 8111 ml Output Total 1600 ml 550 ml 650 ml 9225 ml Balance -1200 ml -30 ml -10 ml -1114 ml Intake Oral 400 ml 520 ml 640 ml 4230 ml IV Total 3881 ml Output Urine Total 1600 ml 550 ml 650 ml 8650 ml Drainage Total 525 ml Estimated Blood Loss 50 ml # Voids 2 # Bowel Movements 0 0 1 Lab & Micro Results Laboratory Tests Test 08/07/16 09:15 White Blood Count 4.9th/mm3 (3.8-10.1) Red Blood Count 2.96mil/mm3 (3.90-5.20) Hemoglobin 9.2g/dL (12.0-15.6) Hematocrit 28.5% (35.0-46.0) Mean Corpuscular Volume 96.3fL (81-100) Mean Corpuscular Hemoglobin 31.1pg (27.0-35.0) Mean Corpuscular Hemoglobin Concent 32.3% (32.0-37.0) Red Cell Distribution Width 12.3% (12.3-15.4) Platelet Count 166bil/L (150-400) Neutrophils (%) (Auto) 75.0% (40-74) Lymphocytes (%) (Auto) 16.9% (14-46) Monocytes (%) (Auto) 5.8% (4-12) Eosinophils (%) (Auto) 1.9% (0-5) Basophils (%) (Auto) 0.2% (0-3) Sodium Level 136mEq/L (134-144) Potassium Level 4.0mEq/L (3.5-5.2) Chloride Level 98mEq/L (97-108) Carbon Dioxide Level 27mmol/L (18-29) Blood Urea Nitrogen 8mg/dL (6-24) Creatinine 0.83mg/dL (0.57-1.00) Estimat Glomerular Filtration Rate 103mL/min (>59) Glucose Level 186mg/dL (60-99) Calcium Level 8.1mg/dL (8.5-10.1) Total Bilirubin 0.2mg/dL (0.0-1.2) Aspartate Amino Transf (AST/SGOT) 26U/L (0-50) Alanine Aminotransferase (ALT/SGPT) 13U/L (0-32) Alkaline Phosphatase 80U/L (25-150) Total Protein 5.3g/dL (6.4-8.4) Albumin 3.5g/dL (3.4-5.0) Microbiology 08/05/16 Urine Culture - Final, Complete No growth (<1,000 organisms/mL) Result Diagram: 08/07/1691408/07/16914 General Appearance: Alert, Oriented X3, Cooperative, No Acute Distress Extremities: No Compartment Syndrom Noted, Thigh & Calf Soft/Nontender Postop Sensory Motor: Distal Motor Intact, Movement in Toes, Distal Sensation Intact SURGICAL WOUND : Drain Location Body Site: Knee Activity: Activity per PT, Ambulate with PT (weightbearing as tolerated on the right lower extremity using frontwheel walker.) Catheters: None Assessment & Plan Impression Patient is a 56-year-old female who is undergone a right total knee arthroplasty on 08/04/2015. She has largely recovered from some cognitive changes just post surgery and is alert and oriented. Problems: Plan Postop day # 4 from right total knee arthroplasty performed on 08/04/[address] Carlos Eduardo Trujillo. Weight bearing status: Weightbearing as tolerated on the right lower extremity Mobility aid: Front-wheeled walker Immobilization: None Precautions: Standard postoperative precautions for mobility gait and safety. Physical therapy: Continue outpatient physical therapy as soon as possible after discharge. Pain control: Continue pain control with Percocet 5/325 and Vistaril. DVT prophylaxis: Continue DVT prophylaxis with ASA 81 mg EC by mouth twice a day 6 weeks postop Wound care: Keep wound clean dry and covered until seen in office in 2 weeks. Alcocer: Absent Dressing: Postoperative dressing is lightly soiled and dry and loosened. Dressing is changed this morning to fresh [place] dressing and fishnet. Extra bandaging material was given to patient this morning and placed in her overnight bag. Drain: Absent CASSI hose: Bilateral thigh high CASSI hose in place. Patient is cautioned not to roll these down and created tourniquet. Nursing communication: Nursing please reinforce to patient that she must not roll her thigh-high CASSI hose down creating a tourniquet effect. If she wants them off she should take them off completely for a period of time and then replace them appropriately. 2-week follow-up: Follow-up in 2 weeks at [facility] orthopedic clinic on prearranged appointment with mid-level provider for wound check and suture removal. 6-week follow-up: Follow-up in 6 weeks at [facility] orthopedic clinic on prearranged appointment with Dr. Carlos Eduardo Trujillo with right 2 view knee x- rays on arrival Plan: Patient will discharge to home today with family has caregivers on postop day #4 after she has received stair training from physical therapy. Orthopedics thanks hospitalist service for their help in the medical management of this patient. Discharge instructions: Weightbearing as tolerated on the right lower extremity using front-wheeled walker. Begin outpatient physical therapy as soon as possible after discharge. Keep wound clean dry and covered until seen in office in 2 weeks. Discharge plan: Discharged to home today on postop day #4, 08/08/2016 with family has caregivers and after physical therapy is completed stair training. VTE Prophylaxis: SCDs, CASSI Hose (bilateral thigh-high CASSI hose.), Other (ASA 81 mg BID) Resuscitation Status: CPR: Attempt Resuscitation Harrison Dueñas PA-C Aug 08, 2016 08:07
[2016-08-08 12:37] VITALS: BP 121/83; PULSE 82; RESP 18; O2SAT 96
--- NOTE | 2016-08-08 12:40 | PCM.DIORTH ---
Ortho Discharge Instruction Dates of Hospitalization Date of Hospital Admission Aug 04, 2016 at 11:03 Providers Admitting Physician: Carlos Eduardo Trujillo MD Primary Care Physician: Marilyn Pruett MD Attending Physician: Carlos Eduardo Trujillo MD Diet Discharge Diet: No restrictions Activity Discharge Activity-General: Try not to overdue, Be up and about, Balance rest and activity, Ice incision 3-5 time/day for 20min, Activity as pain allows, Activity as energy allows, No driving while taking narcotic Right Lower Extremity: Weight Bearing as tolerated Discharge Assist Device: Front Wheeled Walker Dressing and Incisional Care Discharge Dressing Care: Keep dressing clean, dry & intact, Change soiled dressing Discharge Hygiene: May shower (patient may shower after postop day 4 if wound is clean and dry.), DO NOT soak incision under water, NO bathtub, hot tub or whirlpool Additional Instructions Discharge Instructions Plan Postop day # 4 from right total knee arthroplasty performed on 08/04/[address] Carlos Eduardo Trujillo. Weight bearing status: Weightbearing as tolerated on the right lower extremity Mobility aid: Front-wheeled walker Immobilization: None Precautions: Standard postoperative precautions for mobility gait and safety. Physical therapy: Continue outpatient physical therapy as soon as possible after discharge. Pain control: Continue pain control with Percocet 5/325 and Vistaril. DVT prophylaxis: Continue DVT prophylaxis with ASA 81 mg EC by mouth twice a day 6 weeks postop Wound care: Keep wound clean dry and covered until seen in office in 2 weeks. Alcocer: Absent Dressing: Postoperative dressing is lightly soiled and dry and loosened. Dressing is changed this morning to fresh [place] dressing and fishnet. Extra bandaging material was given to patient this morning and placed in her overnight bag. Drain: Absent CASSI hose: Bilateral thigh high CASSI hose in place. Patient is cautioned not to roll these down and created tourniquet. Nursing communication: Nursing please reinforce to patient that she must not roll her thigh-high CASSI hose down creating a tourniquet effect. If she wants them off she should take them off completely for a period of time and then replace them appropriately. 2-week follow-up: Follow-up in [address] [facility] orthopedic clinic on prearranged appointment with mid-level provider for wound check and suture removal. 6-week follow-up: Follow-up in [address] [facility] orthopedic clinic on prearranged appointment with Dr. Carlos Eduardo Trujillo with right 2 view knee x- rays on arrival Plan: Patient will discharge to home today with family has caregivers on postop day #4 after she has received stair training from physical therapy. Orthopedics thanks hospitalist service for their help in the medical management of this patient. Discharge instructions: Weightbearing as tolerated on the right lower extremity using front-wheeled walker. Begin outpatient physical therapy as soon as possible after discharge. Keep wound clean dry and covered until seen in office in 2 weeks. Discharge plan: Discharged to home today on postop day #4, 08/08/2016 with family has caregivers and after physical therapy is completed stair training. Follow Up Plan Follow Up Plan Patient will be seen at 2 weeks, 6 weeks and 12 weeks postoperatively. Patient will be seen when necessary in the interim. Follow-up Provider (F9): Carlos Eduardo Trujillo MD Mid-level Provider (F9): Kayleigh Abdi PA-C Follow-up appointment: Weeks (follow-up in [address] [facility] orthopedic clinic on prearranged appointment with mid-level provider for wound check and suture removal.) Call your provider for: Fever, Chills, Shortness of breath, Vomitting, Drainage at incision Harrison Dueñas PA-C Aug 08, 2016 12:38
[2016-08-08] MEDS ORDERED: LEVO125T6 PO (12:48)
[2016-08-08] MEDS ORDERED: ASPI-973 PO (12:48)
[2016-08-08] MEDS ORDERED: OXYC1TAB24 PO (12:48)
[2016-08-08] MEDS ORDERED: HYDR-3797 PO (12:48)
[2016-08-08] MEDS ORDERED: DOCU-41 PO (12:48)
--- NOTE | 2016-08-08 12:57 | PCM.DC.ORT ---
Discharge Summary Date of Service: Aug 08, 2016 Date of Hospital Admission: Aug 04, 2016 at 11:03 Date of Surgery: Aug 04, 2016 Date of Discharge: Aug 08, 2016 Reason for Hospitalization: Severe right knee osteoarthritis Procedures Performed: Right total knee arthroplasty Hospital Course: Patient was admitted to the preoperative care unit on 08/04/2016 and upon processing was taken to the operating room where her procedure was performed without incident. Patient was then awakened and taken to the postoperative care unit and upon recovery from anesthesia was transferred to the orthopedic care unit where she initially had minimal purchase patient with physical therapy but eventually began to increase her participation and was prepared for discharge to home on postop day #4. Hospital service was called to work with this patient regarding some cognitive issues immediately postop over the next 48 hours and these did also eventually clear and the patient was discharged she is believed to be at her baseline cognitive function. Problems: (1) Osteoarthritis Status: Acute ICD Code: M19.90 Disposition: Discharged to home with family and friends his caregivers. Orthopedic Follow up Plan: In Two Weeks in my clinic (follow-up in 2 weeks at [facility] orthopedic clinic on prearranged appointment with mid-level provider for suture removal and wound check.) Discharge Instructions: Plan Postop day # 4 from right total knee arthroplasty performed on 08/04/[address] Carlos Eduardo Trujillo. Weight bearing status: Weightbearing as tolerated on the right lower extremity Mobility aid: Front-wheeled walker Immobilization: None Precautions: Standard postoperative precautions for mobility gait and safety. Physical therapy: Continue outpatient physical therapy as soon as possible after discharge. Pain control: Continue pain control with Percocet 5/325 and Vistaril. DVT prophylaxis: Continue DVT prophylaxis with ASA 81 mg EC by mouth twice a day 6 weeks postop Wound care: Keep wound clean dry and covered until seen in office in 2 weeks. Alcocer: Absent Dressing: Postoperative dressing is lightly soiled and dry and loosened. Dressing is changed this morning to fresh [place] dressing and fishnet. Extra bandaging material was given to patient this morning and placed in her overnight bag. Drain: Absent CASSI hose: Bilateral thigh high CASSI hose in place. Patient is cautioned not to roll these down and created tourniquet. Nursing communication: Nursing please reinforce to patient that she must not roll her thigh-high CASSI hose down creating a tourniquet effect. If she wants them off she should take them off completely for a period of time and then replace them appropriately. 2-week follow-up: Follow-up in 2 weeks at [facility] orthopedic clinic on prearranged appointment with mid-level provider for wound check and suture removal. 6-week follow-up: Follow-up in 6 weeks at [facility] orthopedic clinic on prearranged appointment with Dr. Carlos Eduardo Trujillo with right 2 view knee x- rays on arrival Plan: Patient will discharge to home today with family has caregivers on postop day #4 after she has received stair training from physical therapy. Orthopedics thanks hospitalist service for their help in the medical management of this patient. Discharge instructions: Weightbearing as tolerated on the right lower extremity using front-wheeled walker. Begin outpatient physical therapy as soon as possible after discharge. Keep wound clean dry and covered until seen in office in 2 weeks. Follow-up with primary care provider in 6-8 weeks post discharge for thyroid function test secondary to hospitalist service increasing thyroid dose from 125 g to 150 g daily. Discharge plan: Discharged to home today on postop day #4, 08/08/2016 with family has caregivers and after physical therapy is completed stair training. Management Plan: Patient will be seen at 2 weeks, 6 weeks and 12 weeks postoperatively. Patient will be seen when necessary in the interim. Aspirin (Aspirin) 81 Mg Tablet 81 MG PO BID Dosing should be taken for 6 weeks postop for DVT prophylaxis. Cyclobenzaprine (Cyclobenzaprine) 10 Mg Tablet 10 MG PO BID PRN PRN Spasm Docusate Sodium (Colace) 100 Mg Capsule 100 MG PO BID Fluoxetine (Prozac) 20 Mg Capsule 60 MG PO DAILY Gabapentin (Gabapentin) 100 Mg Capsule 1,800 MG PO HS Hydrocodone-Acetaminophen 10-325 mg (Hydrocodone-Acetaminophen 10-325 mg) 1 Each Tablet 1 TABLET PO Q5-6H PRN PRN For Pain Hydroxyzine Pamoate (HydrOXYzine Pamoate) 25 Mg Capsule 25-50 MG PO Q4-6H PRN PRN For Restlessness Lamotrigine (Lamotrigine) 200 Mg Tablet 200 MG PO BID Levothyroxine (Levothyroxine) 125 Mcg Tablet 150 MCG PO DAILY Nitroglycerin SL (Nitrostat) 0.4 Mg Tab.subl 0.4 MG SL Q5MIN PRN PRN CHEST PAIN oxyCODONE-Acetaminophen 5-325 mg (oxyCODONE-Acetaminophen 5-325 mg) 1 Each Tablet 1-2 TAB PO Q4-6H PRN PRN For Severe Pain Harrison Dueñas PA-C Aug 08, 2016 12:57
--- NOTE | 2016-08-08 13:44 | NUR ---
Evaluation completed. Please go to "Notes" then click on "Assessments and Notes" (bottom left corner of screen). Then select appropriate discipline tab on top of screen.
[2016-08-08] MEDS: Lactated Ringer's 1,000 ML IV SCH (15:15)
--- NOTE | 2016-08-08 15:52 | PCM.PNMED ---
Subjective Date of Service Aug 08, 2016 Subjective Mentation improved and at baseline. Pain fairly controlled Exam Vital Signs Vital Sign - Last Date Time Temp Pulse Resp B/P Pulse Ox O2 Delivery O2 Flow Rate FiO2 08/08/16 13:14 Room Air 08/08/16 12:37 36.5 82 18 121/83 96 08/06/16 09:30 1.00 Intake and Output 08/07/16 08/07/16 08/08/16 Cumulative From/Thru 15:00 23:00 07:00 07/31/16 09:19 - 08/08/16 06:24 Intake Total 400 ml 520 ml 640 ml 8111 ml Output Total 1600 ml 550 ml 650 ml 9225 ml Balance -1200 ml -30 ml -10 ml -1114 ml Intake Oral 400 ml 520 ml 640 ml 4230 ml IV Total 3881 ml Output Urine Total 1600 ml 550 ml 650 ml 8650 ml Drainage Total 525 ml Estimated Blood Loss 50 ml # Voids 2 # Bowel Movements 0 0 1 Exam General: Alert, Oriented X3, Cooperative, No Acute Distress Head: Normal Mouth: Mucous Membr Moist/[place] Neck: Supple Chest & Lungs: Clear to auscultation & percussion Cardiovascular: Regular Rate/Rhythm, Normal S1, Normal S2 Abdomen: Benign Alcocer removed Musculoskeletal: Other (right knee surgical site cleanly dressed, ) Neurological: Grossly Neurologically Intact, Normal Speech, Strength Normal 4/ 4 ext, Sensation Intact IVs and Medications Medications Reviewed: Medications were reviewed in detail Lab and Diagnostics Result Diagram: 08/07/1691408/07/16914 Assessment & Plan Kerry is a 56-year-old lady with past medical history of hypertension,WPW status post ablation, mitral valve prolapse, hypothyroidism, anxiety disorder was admitted for elective right total knee replacement # Altered mental state,acute,not poa. Resolved -due to pain meds -Removed Alcocer -UA with pyuria, urine culture no growth. Discontinued ceftriaxone -TSH is elevated at 15, free T4 0.83, borderline low. increased Synthroid from 125 to 150 mcg daily. Needs to check thyroid function test in 6-8 weeks -Will use pain meds with caution, lowered home gabapentin dose # Status post right knee replacement on 08/04/16 -Pain control with percocet, -DVT prophylaxis lovenox #Hypothyroidism -as above # History of WPW status post ablation, chronic, stable -No palpitation, regular rhythm on exam may discharge home when cleared by ortho with increased synthroid dose at 150mcg a day,needs to check TFT in 6-8weeks Thank you for the consult, will sign off VTE Prophylaxis: SCDs, CASSI Hose (bilateral thigh-high CASSI hose.), Other (ASA 81 mg BID) VTE Mechanical Devices: Anti-Embolic stockings Resuscitation Status: CPR: Attempt Resuscitation Jacob Ruelas MD Aug 08, 2016 15:52
--- NOTE | 2016-08-08 17:47 | NUR ---
Social Work Readiness for Discharge: SW met with patient at bedside to discuss discharge plan. Patient states plan as home with family and discharge to mothers home. Patient procedure elective and doesn't meet SNF placement consideration. LUDWIG spoke to therapy who assessed patient again t determine safety mobility to transfer home. Recommendations for SNF placement at this time. Patient SBA-CGA with ambulation of 15-25ft. LUDWIG spoke to [facility] who states [facility] will not cover therapy services in home. LUDWIG contacted [facility], [phone] to discuss elective surgery and SNF placement transfer auth request. Rep requested that clinicals be faxed for further review. LUDWIG faxed to .[phone]. LUDWIG to follow up Jose to determine if auth able to be provided for reconsideration of SNF placement under elective surgery. LUDWIG to follow. PLAN: Home with mother with continued PT eval to ensure home safety at discharge tomorrow. LUDWIG faxed clinicals to [facility] for reconsideration of SNF placement under elective surgery, decision pending. Bry GONZALES
--- NOTE | 2016-08-08 19:14 | NUR ---
activity, pain pt. up with 1pa and fww; very unsteady on feet, needing directions repeatedly during transfer regarding how to ambulate/transfer. Worked with PT x2 today. C/o -01/29 pain this shift; receiving prn percocet and vistaril, and oxycodone.
[2016-08-08 20:18] VITALS: BP 132/86; PULSE 76; RESP 18; O2SAT 96
[2016-08-08] MEDS: LORazepam 0.5 mg Tablet PO PRN (20:26)
[2016-08-09] MEDS: hydrOXYzine Pamoate 25 mg Capsule PO PRN ×2 (02:21→13:13)
--- NOTE | 2016-08-09 04:15 | NUR ---
Pain/Activity Patient rating right knee pain at a 7/10 consistently through the night. Receiving Oxycodone 10mg PO and Vistaril 50mg PO for pain management. Noted to be resting with eyes closed upon reassessments, but rates pain 7/10 upon awakening each time. Up with SBA using FWW. Gait steady. Walked around in room and about 1[address] the [address]ravo this evening.
[2016-08-09 04:55] VITALS: BP 132/81; PULSE 74; RESP 18; O2SAT 96
[2016-08-09] MEDS: Lactated Ringer's 1,000 ML IV SCH (07:14)
[2016-08-09] MEDS: lamoTRIgine 100 mg Tablet PO SCH (08:45)
--- NOTE | 2016-08-09 10:45 | PROG NOTE ---
[address] [address] PROGRESS NOTE PATIENT: RD LYONS : 1960 MR#: [id number] ADMIT: 08/04/2016 JOB ID: [id number] DATE: 08/09/2016 PROGRESS NOTE: The patient is postoperative day number five following right total knee arthroplasty. She has had a difficult time in her recovery. She has had some mental status and cognitive issues and pain control issues. Objectively, she has done well. She gets up with physical therapy and ambulates. PHYSICAL EXAMINATION: On exam, she has a normal distal neurovascular exam. She has expected mild swelling of the knee and calf. There are no wound issues. IMPRESSION AND PLAN: She is progressing adequately in physical therapy. It is appropriate for discharge today. Arrangements will be made, and we will see her back as scheduled in the clinic in two weeks postoperative.
[2016-08-09 12:26] VITALS: BP 121/74; PULSE 80; RESP 18; O2SAT 94
--- NOTE | 2016-08-09 13:58 | NUR ---
Discharge To home with mother via private vehicle at 13:15. Steady transfer to wheelchair with SBA and FWW. IV discontinued intact. Pt and mother express understanding of all discharge instructions, including medications and followup. All belongings sent with pt.
== END 2016-08-09 13:20 | disposition home or self-care (01) | DRG 470 ==
LOC: SAS 05:56 → OSC 11:03
PROVIDERS: ADMIT Orthopaedic Surgery; ATTEND Orthopaedic Surgery
PROC: 0SRC0J9 Replacement of Right Knee Joint with Synthetic Substitute, Cemented, Open Approach (ICD-10-PCS; principal; 2016-08-04 07:30)
DX: M17.11 Unilateral primary osteoarthritis, right knee (principal); E03.9 Hypothyroidism, unspecified; F17.210 Nicotine dependence, cigarettes, uncomplicated; Z79.82 Long term (current) use of aspirin; R41.82 Altered mental status, unspecified; I45.6 Pre-excitation syndrome; F41.9 Anxiety disorder, unspecified; T39.95XA Adverse effect of unspecified nonopioid analgesic, antipyretic and antirheumatic, initial encounter

== ENCOUNTER → 2017-02-19 | Day surgery (SDC) | payer OTHER ==
[~2017-02-19] VITALS: Ht 157.5 cm; Wt 54.4 kg
[~2017-02-19] MED LIST changes: +DOCU-41 PO; +HYDR-3605 PO; -HYDR-3740 PO; +LOV60 SUBQ; +OXYC1TAB24 PO; +Propofol 10 mg/mL 20 mL Inj ONE; +WARF5TAB7 PO
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
[2017-02-19 13:46] VITALS: BP 123/89; PULSE 69; O2SAT 98
[2017-02-19 14:22] VITALS: BP 121/79; PULSE 74; RESP 15; O2SAT 100
[2017-02-19 14:34] VITALS: BP 135/87; PULSE 85; RESP 15; O2SAT 99
--- NOTE | 2017-02-19 14:46 | ENDO ---
[address] [address] ENDOSCOPY PROCEDURE PATIENT: RD LYONS : 1960 MR#: [id number] ADMIT: 02/19/2017 JOB ID: [id number] DATE: 02/19/2017 PROCEDURE: Colonoscopy. INDICATION: Positive occult stool blood test. ANESTHESIA: Please see anesthesia report for details regarding ASA classification, Mallampati score, and medications. INSTRUMENT USED: PCF H 180 AL PREPARATION QUALITY: Good. PROCEDURE DETAILS: After informed consent was obtained, the patient was brought into the GI suite, where she was placed on oxygen via nasal cannula and monitored with continuous pulse oximeter, telemetry, and blood pressure monitoring. A time-out was performed, then she was placed in the left lateral decubitus position and medications were administered for sedation. A digital rectal exam was performed which was unremarkable. The colonoscope was then inserted into the rectum and advanced under direct visualization to the cecum, which was identified by the presence of the ileocecal valve and appendiceal orifice. Once the cecum was reached, the colonoscope was withdrawn back into the rectum as the mucosa and lumen were examined. In the rectum, retroflexion was performed. Following retroflexion, the remaining air in the rectum was suctioned and the procedure was completed. FINDINGS: Normal exam from rectum to cecum. IMPRESSION: Normal colonoscopy. RECOMMENDATIONS: Repeat colonoscopy in five years of the patient has a family history of colon cancer. Otherwise repeat colonoscopy in 10 years. COMPLICATIONS: None. ESTIMATED BLOOD LOSS: Less than 5 mL.
--- NOTE | 2017-02-19 18:19 | PCM.ANEP1 ---
Post Anesthesia PACU Phase 1 Assessment Vital Signs Vital Signs Date Time Temp Pulse Resp B/P Pulse Ox O2 Delivery O2 Flow Rate FiO2 02/19/17 14:34 85 15 135/87 99 Room Air 02/19/17 14:22 74 15 121/79 100 Room Air 02/19/17 13:46 69 123/89 98 Room Air Anesthetic Administered: MAC Level of Alertness: Awake, talking Pain: No Nausea or Vomiting: No CV Function & Hydration Stable: Yes Airway Device: None Lungs: Normal Air Movement PACU Phase 2 Assessment Complications: No Follow up Care: N/A Patient Instructions Provided: N/A Carlos Eduardo Odom MD Feb 19, 2017 18:19
== END | disposition home or self-care (01) ==
LOC: END 08:22
PROVIDERS: ATTEND Internal Medicine Gastroenterology
DX: R19.5 Other fecal abnormalities (principal); G47.33 Obstructive sleep apnea (adult) (pediatric); I45.6 Pre-excitation syndrome; F17.210 Nicotine dependence, cigarettes, uncomplicated; Z79.01 Long term (current) use of anticoagulants
CPT/HCPCS: 45378; J2704; J7120